=== PATIENT | female | born 1995 ===

== ENCOUNTER 2019-12-15 06:03 | Inpatient (IN) | payer MEDICAID ==
[~2019-12-15] VITALS: Ht 172.7 cm; Wt 90.5 kg
[2019-12-15] VITALS (29 sets, daily range): BP systolic 123–165; BP diastolic 65–93; PULSE 60–116; TEMP 98.2–99.6
--- NOTE | 2019-12-15 05:45 | NUR ---
G1 at 39.4 weeks gestation to LDR2 with c/o contractions since 0400. She reports good movement, she denies leaking of fluid but does report some bloody show. Patient changed into gown and wedged to left side in bed. EFM explained and applied. FHR 130 bpm and reactive. CTX q1.5-3 minutes, patient very uncomfortable through them. SVE 6/90/-2 with bloody show and bulgy bag. She is GBS+ and has a hx of MJ use, but none during . Discussed UDS with patient and plan of care reviewed.
--- NOTE | 2019-12-15 05:50 | NUR ---
Patient requesting epidural, IV started with labs drawn from site, LR bolus infusing, PROGRAM MANAGEMENT SPECIALIST notified.
[2019-12-15] MEDS ORDERED: PRENATAL TABLET PO (06:13)
--- NOTE | 2019-12-15 06:45 | NUR ---
0624- Pt. back from bathroom. Sitting on side of bed for epidural placement. EFMs and toco on, but not tracing well due to maternal position. 0625- Christiano. WILLIAM Brown at bedside for epidural placement. 0627- Maternal O2 SAT monitor on and tracing. 0635- Test dose, see anesthesia record. 0640- Pt. layed LL, O2 SAT removed and EFM adjusted and tracing.
[2019-12-15 07:46] LABS: BASO # 0.1 (0.0-0.2); BASO % 0.5 % (0.0-2.0); EOS # 0.2 (0.0-0.7); EOS % 1.6 % (0-4.0); GRAN # 6.2 (1.4-6.5); GRAN % 66.3 % (42.2-75.2); HEMOGLOBIN 11.9 g/dl (12.5-16.0); LYMPH # 1.9 (1.2-3.4); LYMPH % 20.6 % (20.0-51.0); MEAN CELL VOLUME 87 fl (80.0-100.0); MEAN CORPUSCULAR HEMOGLOBIN 28 pg (27.0-31.0); MEAN CORPUSCULAR HGB CONC 32 g/dl (33.0-37.0); MEAN PLATELET VOLUME 11.1 fl (7.4-10.4); MONO # 0.9 (0.1-0.6); MONO % 10.1 % (1.7-9.3); PLATELET COUNT 178 K/mm3 (130-400); RED BLOOD COUNT 4.24 M/mm3 (4.10-5.30); REDCELL DISTRIBUTION WIDTH-CV 14.2 % (11.5-14.5)
[2019-12-15 07:53] LABS: TRICYCLIC ANTIDEPRESS URINE NEGATIVE
--- NOTE | 2019-12-15 08:00 | NUR ---
0758- Pt calls RN to bedside, complains of "no able to breathe." O2 sat monitor on and sat noted to be 98%, P82, RR20, encouraged to take slow deep breaths. Pt states she feels really numb on her left upper abd, rib cage. Pt assisted to RL and HOB elevated. Pt verbalizes improvement in breathing.
--- NOTE | 2019-12-15 09:00 | NUR ---
0846- Dr Blancas at bedside, SVE 10100/0, AROM, clear, odorless fluid noted. Dr Blancas answers questions, MD headed to office for clinic. Pt and room prepped for pushing. 0852- Pt pushes with UC. Urine noted with pushing. 0857- Mota placed using sterile technique by VARSHA Hernandez. 0900- Pt begins pushing with UCs. FHR variables noted with each UC. This RN and Najma Clayton RN remain at bedside with Pt, monitoring FHR.
--- NOTE | 2019-12-15 09:15 | NUR ---
0914- Mota removed by this RN, without difficulty.
--- NOTE | 2019-12-15 10:30 | NUR ---
1023- Dr Blancas called and updated, see physician notification. Pt extremely tried, falling asleep between pushing, getting frusterated with lack of progress and exhaustion. Pt responds well to encouragement and continues to push very hard, head moves well but then is not progressing further into cannal.
--- NOTE | 2019-12-15 11:14 | NUR ---
1055- Dr Blancas at bedside, evaluates pushing and progress. Discusses assistance with vacuum, Pt and spouse deny questions. Pt and room prepped for delivery. Christi Nursery RN called to bedside. 1104- Vacuum placed on head, pressure applied while Pt pushes, suction released between contractions. 1114- Vacuum assisted delivery of viable male infant. Infant placed on mother's abd, tended to by nursery RN. Pitocin off. Cord blood obtained. 1119- Spontaneous delivery of placenta. Pitocin restarted at 333ml/hr. Fundus massaged to firm by . Bleeding heavy, VO for Methergine recieved from Dr Blancas. 1124- Methergine given in left thigh. Bleeding moderate. 4th degree repaired by . 1144- Straight cath by MD using red elijah, large amount of fluid noted, unmeasured. Fundus noted to be firm and bleeding WNL. Pericare completed. Clean chux and ice pack to perineum. skin-2-skin with mom, FOB at bedside.
--- NOTE | 2019-12-15 12:00 | NUR ---
1200- 2 of 3 suture needles noted on table after repair completed, looked in under buttock drape and on floor below bed. Two on table discarded in sharps container. Immediately following discard, suture needle found on floor next to delivery table. Unable to verify that this was missing needle or if one was dropped during discard. Will monitor Pt closely.
--- NOTE | 2019-12-15 14:00 | NUR ---
1400- Pt ambulates to bathroom, standby assist x2. Voids large amount but not measured. Pericare explained and performed. Pt taken to PP room via wheelchair. Oriented to room, call light within reach.
[2019-12-16 04:15] VITALS: BP 106/63; PULSE 89; TEMP 98.8
[2019-12-16 07:30] VITALS: BP 111/69; PULSE 69; TEMP 98.6
--- NOTE | 2019-12-16 13:46 | NUR ---
Stitch Marker offered congrats to patient and family.
[2019-12-16 16:51] VITALS: BP 122/65; PULSE 62; TEMP 97.8
[2019-12-16 21:29] VITALS: BP 138/76; PULSE 78; TEMP 97.9
[2019-12-17 08:30] VITALS: BP 114/82; PULSE 92; TEMP 99.3
[2019-12-17 10:22] VITALS: BP 144/77; PULSE 79; TEMP 97.9
--- NOTE | 2019-12-17 10:31 | NUR ---
Pt c/o "not feeling well" and "feeling hot". VS taken and stable. Pt afebrile. RN encouraged pt to drink plenty of fluids, balanced nutrition, getting plenty of rest. Discussed s/sx of infection as related to 4th degree repair. Pt up to restroom for BM. Denies dizziness and nausea. Caterina icepacks provided for home use.
[2019-12-17 10:51] VITALS: BP 130/60; PULSE 78
--- NOTE | 2019-12-17 10:52 | NUR ---
RECHECK BS 130/60. PT STATES SHE IS FEELING BETTER AFTER RESTING.
[2019-12-17] MEDS ORDERED: IBU600 MG PO (11:04)
[2019-12-17] MEDS ORDERED: PERCOCET 325 MG1 TA2 PO (11:04)
--- NOTE | 2019-12-18 13:52 | NUR ---
Engraver Set Up Operator contacted patient at ph#[phone] to follow up on social service director consult. Patient discharged from hospital yesterday with . Patient states father on , Pratik Waldron (ph#[phone]) is involved and supportive. Patient states things have been going well since arriving home yesterday. Patient states she has been and has all the supplies she needs. Patient reports she lives in [place] with a roommate at this time but at the end of January she is moving to [place] with Pratik to be closer to his family for additional support. Patient states she is already set up with [facility]. Patient was wondering where she needed to go to get her blood pressure rechecked in a week and patient states she goes to [facility] for primary care as needed. ALLAN checked with RNShauna who advised patient will need to have this rechecked at [facility]. ALLAN called patient back and patient states she will call [facility] to set up a follow up.
== END 2019-12-17 11:35 | disposition home or self-care (01) | DRG 768 ==
LOC: LDRO 06:03 → LDR 06:12 → OB 14:15
PROVIDERS: Obstetrics & Gynecology; ADMIT Obstetrics & Gynecology
PROC: 10D07Z6 Extraction of Products of Conception, Vacuum, Via Natural or Artificial Opening (ICD-10-PCS; principal; 2019-12-15)
PROC: 0DQP0ZZ Repair Rectum, Open Approach (ICD-10-PCS; 2019-12-15)
PROC: 0W8NXZZ Division of Female Perineum, External Approach (ICD-10-PCS; 2019-12-15)
DX: O99.824 Streptococcus B carrier state complicating childbirth (principal); Z37.0 Single live birth; O75.81 Maternal exhaustion complicating labor and delivery; O99.613 Diseases of the digestive system complicating pregnancy, third trimester; K21.9 Gastro-esophageal reflux disease without esophagitis; O70.3 Fourth degree perineal laceration during delivery; Z3A.39 39 weeks gestation of pregnancy
CPT/HCPCS: J0690; J2210; J2540; J2590; J2791; J7120